=== PATIENT | female | born 1985 | race Two or more races ===

== ENCOUNTER 2018-08-19 14:45 | Inpatient (IN) | payer OTHER ==
[~2018-08-19] VITALS: Ht 160 cm; Wt 87.5 kg
[2018-09-04] MEDS ORDERED: PRENATABS RX T1 EACH PO (09:09)
[2018-09-04] MEDS ORDERED: FOLIC ACID0.4 MG PO (09:09)
[2018-09-04] MEDS ORDERED: FE C TABLET1 EACH PO (09:10)
== END 2018-09-06 14:30 | disposition home or self-care (01) | DRG 807 ==
LOC: ADM 14:45 → EDSTATUS 14:45 → SURG-SUITE 09-04 06:17 → LDR 09-04 06:17 → SURG-SUITE 09-04 18:06 → OB/GYN 09-08 14:45
PROVIDERS: ADMIT Obstetrics & Gynecology
PROC: 10E0XZZ Delivery of Products of Conception, External Approach (ICD-10-PCS; principal; 2018-09-04)
PROC: 10907ZC Drainage of Amniotic Fluid, Therapeutic from Products of Conception, Via Natural or Artificial Opening (ICD-10-PCS; 2018-09-04)
PROC: 0W8NXZZ Division of Female Perineum, External Approach (ICD-10-PCS; 2018-09-04)
PROC: 3E033VJ Introduction of Other Hormone into Peripheral Vein, Percutaneous Approach (ICD-10-PCS; 2018-09-04)
PROC: 4A1HXCZ Monitoring of Products of Conception, Cardiac Rate, External Approach (ICD-10-PCS; 2018-09-04)
DX: O80 Encounter for full-term uncomplicated delivery (principal); Z37.0 Single live birth; Z3A.39 39 weeks gestation of pregnancy

== ENCOUNTER 2024-09-08 14:00 | Outpatient (CLI) | payer OTHER ==
[~2024-09-08 14:00] MED LIST: FE C TABLET1 EACH PO; FOLIC ACID0.4 MG PO; PRENATABS RX T1 EACH PO
== END 2024-09-08 14:03 | disposition home or self-care (01) ==
LOC: PRENATAL 14:00
PROVIDERS: ATTEND Obstetrics & Gynecology
DX: O44.00 Complete placenta previa NOS or without hemorrhage, unspecified trimester (principal); O09.529 Supervision of elderly multigravida, unspecified trimester; O43.90 Unspecified placental disorder, unspecified trimester; Z3A.23 23 weeks gestation of pregnancy

== ENCOUNTER → 2024-10-24 09:53 | Outpatient (CLI) | payer OTHER | END | disposition home or self-care (01) | LOC: PRENATAL 09:53 | PROVIDERS: ATTEND Obstetrics & Gynecology Maternal & Fetal Medicine | DX: O26.849 Uterine size-date discrepancy, unspecified trimester (principal); O09.529 Supervision of elderly multigravida, unspecified trimester; O43.90 Unspecified placental disorder, unspecified trimester; O36.60X0 Maternal care for excessive fetal growth, unspecified trimester, not applicable or unspecified; O99.019 Anemia complicating pregnancy, unspecified trimester; Z3A.31 31 weeks gestation of pregnancy ==

== ENCOUNTER 2024-12-03 09:33 | Outpatient (CLI) | payer OTHER | END 2024-12-03 09:36 | disposition home or self-care (01) | LOC: PRENATAL 09:33 | PROVIDERS: ATTEND Obstetrics & Gynecology Maternal & Fetal Medicine | DX: O26.849 Uterine size-date discrepancy, unspecified trimester (principal); O36.8130 Decreased fetal movements, third trimester, not applicable or unspecified; O09.529 Supervision of elderly multigravida, unspecified trimester; O43.90 Unspecified placental disorder, unspecified trimester; O36.60X0 Maternal care for excessive fetal growth, unspecified trimester, not applicable or unspecified; O99.019 Anemia complicating pregnancy, unspecified trimester; Z3A.38 38 weeks gestation of pregnancy ==

== ENCOUNTER 2024-12-31 16:32 | Inpatient (IN) | payer OTHER ==
[~2024-12-31] VITALS: Ht 152.4 cm; Wt 3.2 kg
[2024-12-31 16:11] VITALS: BP 93/62
[2024-12-31 16:12] VITALS: BP 93/62
[2024-12-31 16:57] LABS: URINE APPEARANCE Cloudy; URINE BILIRRUBIN Negative (NEGATIVE); URINE BLOOD Negative; URINE COLOR Yellow; URINE GLUCOSE Negative (NEGATIVE); URINE KETONE Trace (NEGATIVE); URINE LEUKOCYTE Trace; URINE NITRATE Negative; URINE PROTEIN Trace (NEGATIVE); URINE UROBILINOGEN 0.2 E.U./dl
[2024-12-31 17:01] LABS: URINE EPITHELIAL CELLS 161.5 uL (0.0-38.8); URINE RBC 6.4 uL (0.0-20.8); URINE WBC 29.9 uL (0.0-23.2)
[2024-12-31 17:02] LABS: BASO % 0.0 % (0.1-1.2); EOS # 0.03 (0.04-0.54); EOS % 0.5 % (0.7-7.0); LYMPH # 0.97 (1.18-3.74); LYMPH % 16.1 % (19.3-53.1); MEAN PLATELET VOLUME 12.20 fl (9.4-12.4); MONO # 0.44 (0.24-0.82); MONO % 7.3 % (4.7-12.5); NEUT # 4.55 (1.56-6.13); NEUT % 75.8 % (34.0-71.1); RED CELL DISTRIBUTION WIDTH 15.3 % (11.6-14.4)
[2024-12-31 17:18] LABS: URINE CAST 0.00 uL (0.0-1.40)
[2024-12-31 17:24] LABS: INR < 0.93
[2024-12-31 17:31] LABS: ALT/SGPT 14.0 U/L (12-78); AST/SGOT 12.0 U/L (15-37); BILIRUBIN TOTAL 0.36 mg/dL (0.3-1.2); BUN CREA RATIO 25.0 (7.0-25.0); CREATININE SERUM 0.61 mg/dL (0.55-1.02); GFR 109.19; GLOBULINA 3.3 G/DL (2.4-3.5); GLUCOSE FASTING 101.0 mg/dL (65-100); OSMOLALITY SERUM 280.0 MOSM/KG (275-295)
[2024-12-31 20:04] VITALS: BP 109/73
[2024-12-31] MEDS ORDERED: MISOPROSTOL 25 MCG/4 ML GEL.W.APPL ONE (20:13)
[2024-12-31] MEDS ORDERED: RINGERS SOLUTION,LACTATED 1,000 ML IV SCH (20:15)
[2024-12-31] MEDS ORDERED: MISOPROSTOL 25 MCG/4 ML GEL.W.APPL VAG ONE (20:45)
[2024-12-31 23:22] VITALS: BP 113/72
[2025-01-01 04:26] VITALS: BP 109/69
[2025-01-01 07:30] VITALS: BP 112/65
[2025-01-01] MEDS ORDERED: OXYTOCIN 500 ML IV SCH (07:45)
[2025-01-01 11:38] VITALS: BP 108/65
[2025-01-01] MEDS ORDERED: MORPHINE SULFATE 4 MG/ML CARTRIDGE IV ONE (12:15)
[2025-01-01 13:24] VITALS: BP 119/75
[2025-01-01] MEDS ORDERED: ERYTHROMYCIN BASE OPHT 1GM EACH TUBE OP ONE ×2 (13:26→15:30)
[2025-01-01] MEDS ORDERED: OXYTOCIN 20 UNITS/1000ML RL PIGGYBAG IV ONE (13:26)
[2025-01-01] MEDS ORDERED: CHLORHEXIDINE GLUCONATE 120 ML BOTTLE TOP ONE ×2 (13:26→15:30)
[2025-01-01] MEDS ORDERED: LIDOCAINE HCL 1% 10ML VIAL ONE ×2 (13:26→14:50)
[2025-01-01] MEDS ORDERED: OXYTOCIN 20 UNITS/1000ML RL PIGGYBAG IV SCH (15:30)
[2025-01-01] MEDS ORDERED: LIDOCAINE HCL 1% 20 ML VIAL IJ ONE (15:30)
[2025-01-01] MEDS ORDERED: CHLORHEXIDINE GLUCONATE 120 ML BOTTLE TP SCH (16:00)
[2025-01-01] MEDS ORDERED: BENZOCAINE/MENTHOL 90 ML BOTTLE TOP SCH (16:00)
[2025-01-01] MEDS ORDERED: ACETAMINOPHEN 500 MG GEL..CAP PO PRN (16:00)
[2025-01-01] MEDS ORDERED: DOCUSATE SODIUM 100MG CAP PO SCH (17:00)
[2025-01-01 17:59] VITALS: BP 114/61
[2025-01-02] VITALS: BP 103/72
[2025-01-02 08:00] VITALS: BP 105/76
[2025-01-02 17:37] VITALS: BP 110/70
[2025-01-03 00:10] VITALS: BP 108/76
[2025-01-03 09:14] VITALS: BP 103/70
[2025-01-03] MEDS ORDERED: NAPR500T14 PO (13:00)
== END 2025-01-03 15:44 | disposition home or self-care (01) | DRG 768 ==
LOC: OB/GYN 16:32 → LDR 16:32 → OB/GYN 01-01 16:12
PROVIDERS: ADMIT Obstetrics & Gynecology; ATTEND Obstetrics & Gynecology
PROC: 3E0P7VZ Introduction of Hormone into Female Reproductive, Via Natural or Artificial Opening (ICD-10-PCS; 2024-12-31)
PROC: 4A1HXCZ Monitoring of Products of Conception, Cardiac Rate, External Approach (ICD-10-PCS; 2024-12-31)
PROC: 10E0XZZ Delivery of Products of Conception, External Approach (ICD-10-PCS; principal; 2025-01-01)
PROC: 0DQR0ZZ Repair Anal Sphincter, Open Approach (ICD-10-PCS; 2025-01-01)
PROC: 0W8NXZZ Division of Female Perineum, External Approach (ICD-10-PCS; 2025-01-01)
PROC: 3E033VJ Introduction of Other Hormone into Peripheral Vein, Percutaneous Approach (ICD-10-PCS; 2025-01-01)
DX: O70.21 Third degree perineal laceration during delivery, IIIa (principal); Z37.0 Single live birth; Z3A.39 39 weeks gestation of pregnancy